=== PATIENT | female | born 1985 | race Caucasian/White ===

== ENCOUNTER 2018-02-07 06:32 | Day surgery (SDC) | payer OTHER ==
[2018-02-02 14:12] VITALS: BMI 25.7
[~2018-02-07 06:32] MED LIST: DEXAMETHASONE SOD PHOSPHATE 10 MG/ML 1 ML VIAL IV ONE; LACTATED RINGERS 1,000 ML IV SCH; LIDOCAINE 1% 20 ML VIAL (10MG/ML) FOR IV START INTRADERMA PRN; MORPHINE SULFATE 2 MG/ML SYRINGE IV PRN; ONDANSETRON ODT 4 MG TAB PO ONE; Pre Op ABX Message 1 EACH MISC MISCELLANE ONE; SCOPOLAMINE 1.5MG/72HR PATCH TRANSDERM ONE
[2018-02-07 07:18] VITALS: RESP 16
[2018-02-07] MEDS ORDERED: ONDANSETRON 4 MG/2 ML VIAL IVP ONE (07:28)
--- NOTE | 2018-02-07 07:54 | P.HPOB ---
History of Present Illness H&P Date: 02/07/18 Chief Complaint: cervical dysplasia 32 year old presents for LEEP. Review of Systems All systems: negative Constitutional: Denies chills, Denies fever Eyes: denies blurred vision, denies pain Ears, nose, mouth and throat: Denies headache, Denies sore throat Cardiovascular: Denies chest pain, Denies shortness of breath Respiratory: Denies cough Gastrointestinal: Denies abdominal pain, Denies diarrhea, Denies nausea, Denies vomiting Genitourinary: Denies dysuria, Denies hematuria Musculoskeletal: Denies myalgias Integumentary: Denies pruritus, Denies rash Neurological: Denies numbness, Denies weakness Psychiatric: Denies anxiety, Denies depression Endocrine: Denies fatigue, Denies weight change Past Medical History Past Medical History: No Reported History History of Any Multi-Drug Resistant Organisms: None Reported Additional Past Surgical History / Comment(s): Bilateral bunions and bone spurs removed, bilateral carpal tunnel surgery, jaw surgery. Past Anesthesia/Blood Transfusion Reactions: No Reported Reaction Past Psychological History: No Psychological Hx Reported Smoking Status: Former smoker Past Alcohol Use History: Rare Additional Past Alcohol Use History / Comment(s): Quit smoking Oct 2017, smoked for 10 yrs on and off. Past Drug Use History: None Reported - Past Family History Mother Family Medical History: No Reported History Medications and Allergies Home Medications Medication Instructions Recorded Confirmed Type No Known Home Medications [No 02/02/18 02/07/18 History Known Home Medications] Allergies Allergy/AdvReac Type Severity Reaction Status Date / Time No Known Allergies Allergy Verified 02/07/18 07:16 Exam Osteopathic Statement: *. No significant issues noted on an osteopathic structural exam other than those noted in the History and Physical/Consult. - Vital Signs Vital signs: Vital Signs Temp Pulse Resp BP Pulse Ox 02/07/18 07:17 97 F L 76 16 103/66 97 Heart: RRR Lungs: CTAB Abdomen: soft, nontender Extremties: neg alejandra's Assessment and Plan (1) Cervical dysplasia Current Visit: Yes Status: Acute Code(s): N87.9 - DYSPLASIA OF CERVIX UTERI , UNSPECIFIED SNOMED Code(s): 56602554 Plan: 1. LEEP
[2018-02-07] MEDS ORDERED: LIDOCAINE 1% INJ 10MG/ML (20 ML MDV) ONE (08:07)
[2018-02-07] MEDS ORDERED: PROPOFOL 10 MG/ML 20 ML VIAL IV ONE (08:07)
[2018-02-07] MEDS ORDERED: fentaNYL (PF) 50 MCG/ML 2 ML AMP ONE (08:07)
[2018-02-07] MEDS ORDERED: MIDAZOLAM 2 MG/2 ML VIAL ONE (08:07)
[2018-02-07] MEDS ORDERED: ACETIC ACID 15 DROPS/ML DROPS MISCELLANE ONE (08:23)
[2018-02-07] MEDS ORDERED: FERRIC SUBSULFATE (MONSELS) JAR TOPICAL ONE (08:24)
--- NOTE | 2018-02-07 08:31 | P.OP ---
Date of Procedure: 02/07/18 Preoperative Diagnosis: 1. cervical dysplasia Postoperative Diagnosis: 1. cervical dysplasia Procedure(s) Performed: LEEP Anesthesia: MAC Surgeon: Felicity Small Estimated Blood Loss (ml): 3 IV fluids (ml): 400 Pathology: other (cervical cone) Condition: stable Disposition: PACU Description of Procedure: Patient is taken the operating room where general anesthesia was obtained without difficulty. She is prepped draped in normal sterile fashion dorsal lithotomy position, legs placed in the candycane stirrups. A speculum placed in the vagina and the cervix was visualized easily. The 2 cm loop was used to obtain a specimen across the anterior lip, then the posterior lip, then the endocervix. The ball tip cautery was used to cauterize the crater left from the specimen. Monsel solution was also placed. Hemostasis was assured. Patient to our procedure well, sponge and instrument counts are correct 2. She was to recovery in stable condition.
[2018-02-07 08:45] VITALS: TEMP 97.6
[2018-02-07] MEDS ORDERED: LACTATED RINGERS 1,000 ML IV ONE (08:58)
[2018-02-07 09:58] VITALS: BP 108/73; PULSE 78
== END 2018-02-07 10:18 | disposition home or self-care (01) ==
LOC: OR 06:32 → MERGE 06:32 → OR 10:18
PROVIDERS: ATTEND Obstetrics & Gynecology
DX: N87.1 Moderate cervical dysplasia (principal); R87.612 Low grade squamous intraepithelial lesion on cytologic smear of cervix (LGSIL); Z87.891 Personal history of nicotine dependence
CPT/HCPCS: 81025; 88307; 57522; J2250; J1100; J2405; J2001; J3010; J2704

== ENCOUNTER 2020-11-25 08:46 | Emergency (ER) | payer BC, OTHER ==
[2020-11-25 08:52] VITALS: BP 122/77; PULSE 114; RESP 18; TEMP 97.8
--- NOTE | 2020-11-25 09:16 | ED ---
Upper Extremity HPI - General Chief Complaint: Extremity Injury, Upper Stated Complaint: L Arm Injury Time Seen by Provider: 11/25/20 08:59 Source: patient Mode of arrival: ambulatory Limitations: no limitations - History of Present Illness Initial Comments: This is a 35-year-old female with a history of a left ulnar nerve transplant many years ago who states she slipped on ice yesterday fell on her left elbow she denies pain and swelling to left elbow no other injuries reported no head neck or back pain no other extremity injury. She states she has pain with movement 9/10 severity at rest is almost 0 she does not want any pain medication at this time this is no sensorimotor or vascular deficits. Complaint: Injury to:: left, elbow - Related Data Home Medications Medication Instructions Recorded Confirmed No Known Home Medications 11/25/20 11/25/20 Allergies Allergy/AdvReac Type Severity Reaction Status Date / Time No Known Allergies Allergy Verified 11/25/20 09:49 Review of Systems ROS Statement: Those systems with pertinent positive or pertinent negative responses have been documented in the HPI. ROS Other: All systems not noted in ROS Statement are negative. Past Medical History Past Medical History: No Reported History History of Any Multi-Drug Resistant Organisms: None Reported Additional Past Surgical History / Comment(s): jaw, bilateral foot bunion and bone spur. bilateral carpal tunnel Past Psychological History: No Psychological Hx Reported Smoking Status: Current every day smoker Past Alcohol Use History: None Reported Past Drug Use History: None Reported General Exam - General Exam Comments Initial Comments: Is a well-developed well-nourished awake alert oriented history female with a G lasgow Coma Scale of 15 Limitations: no limitations General appearance: alert, in no apparent distress Head exam: Present: atraumatic, normocephalic, normal inspection Eye exam: Present: normal appearance, PERRL, EOMI. Absent: scleral icterus, conjunctival injection, periorbital swelling ENT exam: Present: normal exam, mucous membranes moist Neck exam: Present: normal inspection, full ROM. Absent: tenderness, meningismus, lymphadenopathy Respiratory exam: Absent: chest wall tenderness Cardiovascular Exam: Present: regular rate, normal rhythm, tachycardia, normal heart sounds. Absent: systolic murmur, diastolic murmur, rubs, gallop, clicks Extremities exam: Present: tenderness, normal capillary refill, other (Edema seen over left elbow with some tenderness palpation limited range of motion secondary to pain no definite deformity) Course Vital Signs 11/25/20 08:50 Temperature 97.8 F Pulse Rate 114 H Respiratory 18 Rate Blood Pressure 122/77 O2 Sat by Pulse 96 Oximetry Medical Decision Making - Medical Decision Making I did discuss findings with the patient she does them straight evidence of a suspected fracture to the distal humerus patient will be placed in a sling ice elevation [id number] pain medication she was offered pain medication and did not want any at this time. She'll be referred to orthopedics. - Radiology Data Radiology results: report reviewed (I did review the imaging and report there is evidence of a avulsion to the distal humerus with a defect noted. Please see complete report), image reviewed Disposition Clinical Impression: Left elbow fracture Disposition: HOME SELF-CARE Condition: Good Instructions (If sedation given, give patient instructions): Elbow Fracture (ED) Additional Instructions: Ice 24-48 hours, sling, [id number] pain medication Is patient prescribed a controlled substance at d/c from ED?: No Referrals: Braxton Pineda DO [Primary Care Provider] - 1-2 days Braxton Lovelace DO [Doctor of Osteopathic Medicine] - 1-2 days
--- NOTE | 2020-11-25 09:38 | XR ---
Left elbow HISTORY: Trauma, pain, erythema 3 views the left elbow Lucency is present within the soft tissues, there is soft tissue swelling. Bone mineralization and gt int spaces are maintained. There is an ossific density present at the posterior aspect of the joint m easuring 11 x 4 x 2 mm. Suspected joint effusion. Mild cortical step off is questioned on the oblique view at the distal metaphysis of the left humerus, cortical irregularity also noted on the anterior view distally in the humerus. IMPRESSION: Findings could represent avulsion of the triceps tendon, chip fracture. Consider elbow MR I for further evaluation, CT. Difficult to exclude distal humeral fracture.
== END 2020-11-25 10:22 | disposition home or self-care (01) ==
LOC: EC 08:46
DX: S42.402A Unspecified fracture of lower end of left humerus, initial encounter for closed fracture (principal); R00.0 Tachycardia, unspecified; F17.200 Nicotine dependence, unspecified, uncomplicated; W00.0XXA Fall on same level due to ice and snow, initial encounter; Y92.89 Other specified places as the place of occurrence of the external cause
CPT/HCPCS: 99283

== ENCOUNTER → 2021-06-10 | Outpatient (CLI) | payer BC | END | disposition home or self-care (01) | LOC: LABWHC1 14:15 | PROVIDERS: ATTEND Emergency Medicine | DX: Z20.822 Contact with and (suspected) exposure to COVID-19 (principal) | CPT/HCPCS: 87635; C9803 ==

== ENCOUNTER → 2021-06-11 | Outpatient (CLI) | payer BC | END | disposition home or self-care (01) | LOC: LABWHC1 14:30 | PROVIDERS: ATTEND Emergency Medicine | DX: Z20.822 Contact with and (suspected) exposure to COVID-19 (principal) | CPT/HCPCS: 87635; C9803 ==

== ENCOUNTER → 2022-09-23 | Outpatient (CLI) | payer BC ==
--- NOTE | 2022-09-23 18:09 | MR ---
EXAMINATION TYPE: MR brain wo/w con DATE OF EXAM: 09/23/2022 2:19 PM CLINICAL INDICATION:Female, 37 years old with history of H53.8 VISUAL DISTURBANCES; COMPARISON: None TECHNIQUE: Multi planar, multi sequence imaging was performed through the brain including: T1, T2, In version recovery, susceptibility weighted imaging and gradient echo imaging and Diffusion weighted im aging. The patient was then given intravenous contrast and multi planar, T1 fat-saturation images wer e obtained. IV Contrast: 7 cc Gadavist FINDINGS: The bernard-white junctions, ventricular system, basal cisterns appear unremarkable. Diffusion-weighted imaging shows no evidence of restricted diffusion to suggest acute/subacute infarct. Intracranial art erial flow voids are maintained. Midline structures show no abnormality. Few scattered foci of high T 2 signal intensity are seen within the periventricular white matter. The susceptibility weighted imag es do not reveal any evidence for micro-hemorrhage. After administration of gadolinium, no abnormal e nhancement is seen. The bone marrow signal is within normal limits. Paranasal sinuses and mastoid air cells: Mild scattered paranasal sinus disease. Visualized orbits: Orbital contents are intact. IMPRESSION: 1. No evidence of intracranial mass, acute/subacute infarct, or abnormal enhancement. 2. Few foci of nonspecific white matter changes.
== END | disposition home or self-care (01) ==
LOC: RADMRIMAIN 13:28
PROVIDERS: ATTEND Ophthalmology
DX: R90.82 White matter disease, unspecified (principal); H53.8 Other visual disturbances
CPT/HCPCS: 70553; A9585

== ENCOUNTER → 2023-03-12 | Outpatient (CLI) | payer BC | END | disposition home or self-care (01) | LOC: LABWHC1 08:18 | PROVIDERS: ATTEND Nurse Practitioner Family | DX: H46.9 Unspecified optic neuritis (principal); R90.82 White matter disease, unspecified | CPT/HCPCS: 36415 ==